=== PATIENT | female | born 1990 | race Caucasian/White ===

== ENCOUNTER 2016-11-11 23:04 | Emergency (ER) | payer SELFPAY ==
--- NOTE | 2016-11-11 23:41 | ED Physician Documentation ---
General Adult - HISTORIAN Historian: patient, spouse - HPI Stated Complaint: LUQ pain and cough/chest congestioin Chief Complaint: General Adult Additional Information: LUQ pain x 3 days. No bowel movement for 3-4 weeks. Also has a cough for 3 weeks and cough makes LUQ pain worse. Was feverish two weeks ago. - ROS CONST: fever - PAST HX Past History: none Surgeries/Procedures: other (wrist fracture) Allergies/Adverse Reactions: Allergies Allergy/AdvReac Type Severity Reaction Status Date / Time amoxicillin trihydrate Allergy Unknown Verified 11/11/16 23:23 [From Augmentin] Penicillins Allergy Unknown Verified 11/11/16 23:23 potassium clavulanate Allergy Unknown Verified 11/11/16 23:23 [From Augmentin] Home Medications: Ambulatory Orders Medication Instructions Recorded NK [NK] 11/11/16 - SOCIAL HX Smoking History: cigarettes - FAMILY HX Family History: Yes (F with mesothelioma) - VITAL SIGNS Vital Signs: Vital Signs Temp Pulse Resp BP Pulse Ox 98.0 F 104 H 18 138/90 94 11/11/16 23:18 11/11/16 23:18 11/11/16 23:18 11/11/16 23:18 11/11/16 23:18 - REVIEWED ASSESSMENTS Nursing Assessment Reviewed: Yes Vitals Reviewed: Yes Progress - Progress Progress: Obstructive series with chest x-ray Clinical history: Left upper quadrant abdominal pain. Constipation. Cough. Findings: Examination of the chest in single PA upright view demonstrates the lungs to be clear. The cardiovascular and mediastinal silhouettes are within normal limits. Examination of the abdomen in supine and upright views demonstrates stool throughout the colon. There is no obstruction or free air. Properitoneal fat lines are preserved and visualized visceral silhouettes are within normal limits. Bony structures are intact. There are no unusual intra-abdominal calcifications. Psoas margins are well-defined. Impression: 1. Stool throughout the colon. 2. No active pulmonary disease. Electronically signed on Nov 12, 2016 12:28:33 AM FREIGHT CHECKER by: Dhaval Mccullough ED Results Lab/Radiology - Orders Orders: ED Orders Category Date Time Status ABDOMEN WITH PA CHEST [ABD SERIES PA CHEST] [RAD] Stat Exams 11/11/16 Ordered General Adult Physical Exam - PHYSICAL EXAM GENERAL APPEARANCE: mild distress EENT: eye inspection normal, ENT inspection normal, pharynx normal, no signs of dehydration NECK: normal inspection RESPIRATORY: no resp distress, other (occasional cough) CVS: reg rate & rhythm, heart sounds normal, no murmur ABDOMEN: soft, normal bowel sounds, tenderness (LUQ) RECTAL: deferred BACK: normal inspection SKIN: warm/dry, normal color EXTREMITIES: normal range of motion (gait), no evidence of injury NEURO: CN's nml as tested, motor nml, sensation nml Discharge Clincal Impression: Constipation Qualifiers: Constipation type: unspecified constipation type Qualified Code(s): K59.00 - Constipation, unspecified URI (upper respiratory infection) Qualifiers: URI type: unspecified viral URI Qualified Code(s): J06.9 - Acute upper respiratory infection, unspecified; B97.89 - Other viral agents as the cause of diseases classified elsewhere Home Medications: Ambulatory Orders NK [NK] 11/11/16 Condition: Fair Disposition: 01 HOME, SELF-CARE Decision to Admit: NO Decision Time: 00:33
[2016-11-12] MEDS ORDERED: MAGNESIUM CITRATE 296 ML BOTTLE PO ONE (00:34)
[2016-11-12] MEDS ORDERED: BENZONATATE 100 MG CAPSULE PO ONE (00:34)
[2016-11-12] MEDS ORDERED: PHARMACY KEY 1 EACH EACH MC ONE (00:40)
[2016-11-12 01:04] VITALS: BP 132/84
--- NOTE | 2016-11-12 15:12 | Diagnostic Imaging Report ---
[facility] [address] [facility].[address] [address] Report Submission Date: Nov 12, 2016 12:28:33 AM MACHINE TOOL TECHNOLOGY INSTRUCTOR Patient Study Name: JOSEFINA ISLAS Date: Nov 12, 2016 12:07:15 AM MACHINE TOOL TECHNOLOGY INSTRUCTOR Modality Type: CR Gender: F Description: CHEST,ABDOMEN : 86 Institution: [facility] Physician: ANTOLIN RDZ Obstructive series with chest x-ray Clinical history: Left upper quadrant abdominal pain. Constipation. Cough. Findings: Examination of the chest in single PA upright view demonstrates the lungs to be clear. The cardiovascular and mediastinal silhouettes are within normal limits. Examination of the abdomen in supine and upright views demonstrates stool throughout the colon. There is no obstruction or free air. Properitoneal fat lines are preserved and visualized visceral silhouettes are within normal limits. Bony structures are intact. There are no unusual intra-abdominal calcifications. Psoas margins are well-defined. Impression: 1. Stool throughout the colon. 2. No active pulmonary disease. Electronically signed on Nov 12, 2016 12:28:33 AM MACHINE TOOL TECHNOLOGY INSTRUCTOR by: Dhaval LOGAN
== END 2016-11-12 01:02 | disposition home or self-care (01) ==
LOC: ED 23:04
DX: K59.00 Constipation, unspecified (principal); J06.9 Acute upper respiratory infection, unspecified
CPT/HCPCS: 74022; A9270; 99282; 99283